=== PATIENT | male | born 1965 | race Caucasian/White ===

== ENCOUNTER 2024-02-20 08:36 | Emergency (ER) | payer OTHER ==
[~2024-02-20] VITALS: Ht 165.1 cm; Wt 73.0 kg
[2024-02-20 08:39] VITALS: BP 155/90; O2SAT 97
[2024-02-20] MEDS ORDERED: IBUP-2029 MT (10:29)
[2024-02-20] MEDS ORDERED: CEPH500C2 MT (10:29)
[2024-02-20] MEDS: CEFAZOLIN SODIUM 1000MG/VIAL IM ONE (11:04)
[2024-02-20] MEDS: IBUPROFEN 600MG TABLET PO ONE (11:08)
[2024-02-20 11:15] VITALS: PULSE 80; RESP 18; TEMP 97.8
== END 2024-02-20 11:31 | disposition home or self-care (01) ==
LOC: ER 08:36
DX: S62.634B Displaced fracture of distal phalanx of right ring finger, initial encounter for open fracture (principal); X58.XXXA Exposure to other specified factors, initial encounter; Y93.89 Activity, other specified; Y92.89 Other specified places as the place of occurrence of the external cause; Y99.8 Other external cause status
CPT/HCPCS: 73140; 29130; 96372; 99283; J0690; Z7610